=== PATIENT | female | born 1950 | race Caucasian/White ===

== ENCOUNTER 2020-02-16 06:04 | Inpatient (IN) | payer OTHER ==
[2020-02-08 11:45] LABS: HEMATOCRIT 41.6 % (37.0-47.0); HEMOGLOBIN 14.1 gm/dL (12.0-15.0); MCH 32.2 pg (26.0-34.0); MCV 94.9 fL (80.0-100.0); RBC 4.38 mil/uL (4.20-5.00); RDW 13.5 % (10.5-14.5); WBC 4.5 thou/uL (4.0-11.0)
[2020-02-08 11:53] LABS: URINE BLOOD NEGATIVE (Negative); URINE CLARITY CLEAR; URINE COLOR YELLOW; URINE GLUCOSE-RANDOM* NEGATIVE (Negative); URINE KETONES TRACE (Negative); URINE LEUKOCYTES-REFLEX NEGATIVE (Negative); URINE NITRITE-REFLEX NEGATIVE (Negative); URINE PROTEIN (DIPSTICK) NEGATIVE (Negative); URINE SPECIFIC GRAVITY >= 1.030 (1.005-1.035); URINE UROBILINOGEN 0.2 E.U./dl (0.2-1.0)
[2020-02-08 12:01] LABS: CREATININE 0.9 mg/dL (0.6-1.0); POTASSIUM 4.4 mmol/L (3.5-5.1)
[2020-02-08 12:13] LABS: ICTOTEST (BILI CONFIRMATORY) Negative (Negative); URINE BILIRUBIN NEGATIVE (Negative)
--- NOTE | 2020-02-08 15:51 | EKG ---
[facility] [place] [address] ELECTROCARDIOGRAM REPORT Name: JOAN SMITHPaulette Mcneal Room #: PRE IN ..#: [id number] Admission: Attend Phys: Kelvin Kidd MD Discharge: Date of : 46 Report #: [id number] THIS REPORT FOR: cc: Александр Rojas MD, Eric K. MD Couchonnal, Luis F. MD ~ THIS REPORT FOR: //name// [facility] Test Date: 2020-02-08 Test Time: 11:16:04 Pat Name: CHELSEA SMITH Department: Room: Gender: Culinary Intern: Iza WILEY : 1950 Requested By: Kelvin Kidd Order Number: [id number] MD: Fish Jeter Measurements Intervals [place] Rate: 57 P: 41 VT: 189 QRS: 17 QRSD: 89 T: 47 QT: 445 QTc: 434 Interpretive Statements Sinus rhythm Probable anteroseptal infarct, old No previous ECG available for comparison Electronically Signed On 02-08-2020 15:50:55 CDT by Fish Jeter [email or web address] <ELECTRONICALLY SIGNED> By: Fish Jeter MD 02/08/20 1550 [id number] Fish Jeter MD /CECILE
[2020-02-09 02:06] LABS: GLYCOHEMOGLOBIN (HGB A1C) 5.7 % (4.8-5.6)
[~2020-02-16] VITALS: Ht 162.6 cm; Wt 68.0 kg
[2020-02-16] VITALS (7 sets, daily range): BP systolic 101–136; BP diastolic 55–66
[~2020-02-16 06:04] MED LIST: ASPIRIN325 PO; ATIVAN1 M1 PO; CARVEDILOL12.5 MG PO; LEXAPRO 10 MG T10 M1 PO; LIPITOR 20 MG T20 M1 PO; LISINOPRIL20 MG PO; NORVASC5 MG PO
--- NOTE | 2020-02-16 15:22 | NUR ---
met with patient and spouse at bedside. Patient rec DJD bilateral knee. Patient independent with adls police captain senior. Spouse reports they have a walker and wc that has been given to them to use. No hx of HH care. No preference and agreeable to [facility] PCP Dr Rojas. step to enter home once inside all needs on one level.
--- NOTE | 2020-02-16 18:00 | NUR ---
PT RECEIVED FROM [facility] RM ALERT AND IN NO ACUTE DISTRESS. REPORT PER SECRETARY BOARD OF COMMISSIONERS THAT PT HAD DROPPED HER BP TO THE 70'S BUT HAD INCREASED TO THE 90'S SYSTOLIC. BP WAS DOING FINE AND THEN DROPPED AGAIN TO HIGH 70'S SYSTOLIC. PT NOT SYMPTOMATIC BUT GAVE IV FLUID BOLUS AND PUT PT IN TRENDELENBERG AND BP CAME UP IMMEDIATELY. DR. PAREDES SAW PT IN CONSULTAION. DOING WELL. TAKING CLEAR LIQUIDS. DID GET IV MORPHINE FOR PAIN THIS AFTERNOON AND SHE GOT LOCAL RASH W/ ITCHING. REPORTED TO DR. CEE. PT TO WORK W/ PHYSICAL THERAPY TOMORROW.
--- NOTE | 2020-02-16 19:03 | NUR ---
PATIENT ADMITTED FROM OR WITH BILATERAL TOTAL KNEE REPLACEMENT, BILATERAL SHIRLEY DRESSINGS IN PLACE. THIGH HIGH MYESHA HOSE, SCD'S, ICE PACKS. PATIENT HAS 2 HEMOVACS R/L IN PLACE. EMPTIED BY LIEN/BRYSON. PATIENT C/O NAUSEA, ZOFRAN 4MG IV DURING ADMISSION. PATIENT GIVEN MORPHINE 2 MG IV, IMMEDIATELY REDNESS AND ITCHING TO LEFT FOREARM, BENADRYL 25MG PO GIVEN. LIEN/BRYSON NOTIFIED DR CEE. O2 AT 2 LITERS/NC IN PLACE. SATS ABOVE 90%. ADMISSION DONE REPORT GIVEN TO LIEN/BRYSON.
--- NOTE | 2020-02-17 01:53 | NUR ---
ASSUMED PT CARE AT 1900.PT WAS ALERT BUT WITH CONFUSION.PT HAD BEEN CALLING THE NURSES STATION AND WAKING HER FAMILY MEMBERS UP DUE TO HER CONFUSION.HOURLY ROUNDING MAINTAINED.FEMI HEMOVAC IN PLACE ON HER KNEES.DRSG C/D/I.MYESHA HOSE AND SCD IN PLACE.PT STILL AWAKE ON HER BED AT THIS TIME.ICE PACK TO HER FEMI KNEES.CONCRETE BUILDINGS ASSEMBLER NOTIFIED OF PT'S STATUS.PT ENCOURAGED TO USE HER INCENTIVE SPIROMETER.PT REPOSITIONED WHILE IN BED.FALL PRECAUTIONS IN PLACE,CALL LIGHT WITHIN REACH.
[2020-02-17 04:30] VITALS: BP 145/70
[2020-02-17 05:01] LABS: HEMATOCRIT 26.5 % (37.0-47.0); HEMOGLOBIN 9.2 gm/dL (12.0-15.0); MCH 33.1 pg (26.0-34.0); MCHC 34.7 g/dL (28.0-37.0); MCV 95.4 fL (80.0-100.0); RBC 2.78 mil/uL (4.20-5.00); RDW 12.9 % (10.5-14.5); WBC 9.6 thou/uL (4.0-11.0)
[2020-02-17 05:03] LABS: CALCIUM 7.8 mg/dL (8.5-10.1); CREATININE 0.7 mg/dL (0.6-1.0); MAGNESIUM 1.5 mg/dL (1.8-2.4); POTASSIUM 4.3 mmol/L (3.5-5.1)
[2020-02-17 07:35] VITALS: BP 120/56
[2020-02-17 11:21] VITALS: BP 150/81
--- NOTE | 2020-02-17 11:32 | O ---
[facility] [place] [address] OPERATIVE REPORT Name: CHELSEA SMITH Room #: 446-P ADM IN M.R.#: [id number] Admission: 02/16/20 Attend Phys: Kelvin Kidd MD Discharge: Date of : 46 Report #: [id number] THIS REPORT FOR: cc: Александр Rojas MD, Eric K. MD Clymer, David J. MD ~ CC: Kelvin Rojas DATE OF SERVICE: 02/16/2020 PREOPERATIVE DIAGNOSIS: Bilateral knee degenerative osteoarthritis. POSTOPERATIVE DIAGNOSIS: Bilateral knee degenerative osteoarthritis. PROCEDURE: Bilateral total knee replacement. SURGEON: Kelvin Kidd MD INDICATIONS: This slender, active and independent 69-year-old female complains of rather severe bilateral knee pain. Clinical exam and x-rays reveal moderately severe degenerative arthritis with moderate 3 compartment crepitus and mild swelling. Alignment is satisfactory. We have discussed various treatment options including conservative management with injections and anti-inflammatories or therapy. She finds these are ineffective and has elected to go ahead with total knee replacement. I suggested it would probably be the best and safest to do 1 knee at a time, but she was rather adamant that she prefers bilateral knee replacement and is confident that she can manage the postoperative recovery, even though she understands it may be more difficult. The patient and her understand well and appreciate some increased risk with bilateral procedure, but prefer to go ahead with that approach. DESCRIPTION OF PROCEDURE: The patient was taken to the operating room where she was placed under general anesthesia. Prophylactic intravenous antibiotics were administered. Both lower extremities were meticulously prepped and draped. The attention was directed to the left knee first and the right knee was covered. The left lower extremity was exsanguinated and a thigh tourniquet applied and inflated to 300 mmHg. An anterior longitudinal skin incision was made and carried through the medial retinaculum. The patella was reflected laterally. Moderate degenerative change in all 3 compartments was noted. The Masterson and NephKlip.in knee system was utilized. Intramedullary guides were used on both the femur and the tibia. The femur was cut in 5 degrees of valgus and the tibia cut perpendicular to long axis of the bone. The femur was best suited for a size 3 left femoral component. The tibia was best suited for a size 2 tibial component. The patellar surface was resected and a 29 mm patellar button seemed to fit most appropriately. A trial reduction was performed and the knee seemed [address] [address] OPERATIVE REPORT Name: JNJOAN RAMOSPaulette Mcneal Room #: 446-P [facility] IN [facility]#: [id number] Admission: 02/16/20 Attend Phys: Kelvin Kidd MD Discharge: Date of : 46 Report #: [id number] best suited for a 9 mm polyethylene insert. This resulted in full knee extension and good flexion and satisfactory stability. The patella seemed to track nicely and appears to be stable. The trial components were removed. The bony surfaces were thoroughly irrigated and dried. The intramedullary canal was blocked with a bone block on both the femoral and tibial sides. Methyl methacrylate cement was mixed and injected into the porous surface of the tibia. The permanent components were brought on to the field. A Masterson and Nephew cruciate retaining size 2 tibial baseplate was impacted into position and the excess cement removed from around its margin. A 9 mm cruciate retaining polyethylene insert was snapped into place. It seated nicely and appeared to be secure. A size 3 left femoral component was impacted onto the distal femur and seated nicely and appeared to be secure. A 29 mm patellar button was cemented into place using appropriate anchor holes and this was secured with a patellar clamp while the cement hardened. Once the cement was firm, alignment, range of motion and stability were assessed and felt to be satisfactory. A single Hemovac was left in the wound exiting through a lateral separate stab incision. The fascia was closed with multiple #1 Vicryl sutures. The subcutaneous tissues were closed with 0 Monocryl. The skin was closed with skin jerica. A sterile dressing was applied. The tourniquet was deflated after a total tourniquet time of 50 minutes. Attention was then directed to the opposite right knee. Once again, the knee had been previously prepped and draped in a sterile fashion. The extremity was exsanguinated and a thigh tourniquet applied and inflated to 300 mmHg. An anterior longitudinal skin incision was made and carried through the medial retinaculum. The patella was reflected laterally and somewhat more severe generalized degenerative chondromalacia damage in all 3 compartments was noted. Once again, the Masterson and Nephew knee system was utilized. Intramedullary guides were used on both the femur and the tibia. The femur was cut in 5 degrees of valgus and the tibia cut perpendicular to long axis of the bone. The femur was best suited for a size 3 right femoral component and the tibia best suited for a size 2 tibial component. The patellar surface was resected and a 29 mm patellar button seemed to fit most appropriately. A trial reduction was performed and a 10 mm polyethylene insert fit nicely and resulted in full knee extension, good flexion and satisfactory stability with varus and valgus stress. The trial components were removed. The bony surfaces were thoroughly irrigated and dried. The intramedullary canal was blocked with bone block on both the femoral and tibial sides. Methyl methacrylate cement was mixed and injected into the porous surface of the proximal tibia. The permanent components were brought on to the field. A Masterson and Nephew size 2 right tibial baseplate was impacted into position. It seated nicely and appeared to be secure. A 10 mm polyethylene insert was snapped into place and also seemed to be secure. The size 3 right cruciate retaining femoral component was then impacted on to the distal femur. It seated nicely and appeared to be secure. A 29 mm patellar [address] [address] OPERATIVE REPORT Name: CHELSEA SMITH Room #: 446-P [facility] IN [facility]#: [id number] Admission: 02/16/20 Attend Phys: Kelvin Kidd MD Discharge: Date of : 46 Report #: [id number] button was cemented in place with appropriate anchor holes and held with a patellar clamp until the cement had hardened. Once the cement was firm, alignment, range of motion and stability were assessed and felt to be satisfactory. A single Hemovac was left in the wound exiting through a separate stab incision. The tourniquet was deflated after a total tourniquet time of 46 minutes. Good hemostasis was confirmed. The fascia was closed with multiple #1 Vicryl sutures. The subcutaneous tissues were closed with 0 Monocryl. The skin was closed with skin jerica. Sterile dressing was applied to both knees. The patient was then awakened and returned to recovery room in satisfactory condition. <ELECTRONICALLY SIGNED> By: Kelvin Kidd MD 02/17/20 1132 1040 1138 Kelvin Kidd MD /nt
--- NOTE | 2020-02-17 11:52 | NUR ---
SW reviewed chart and spoke with nursing. Pt is POD#1 bilateral TKR. Pt is progressing towards goals for discharge. Anticipate pt will be able to discharge home. Should pt need home health services, referral has been sent to [facility]. Finalized discharge orders/summary will need to be faxed to if needed. SW is available to assist as needed with discharge planning. [facility]AY[facility] --
[2020-02-17 16:20] VITALS: BP 153/69
--- NOTE | 2020-02-17 16:58 | NUR ---
PATIENT SEEN THIS DATE FOR REHAB CONSULT BY DIXIE DOTY NP WITH DR. POTTER. PATIENT WITH CONFUSION AND PAIN THIS DATE. IS HOPING THAT PATIENT CAN DISCHARGE TO HOME. DIXIE WILL REVIEW PATIENT'S MEDICAL CHART TOMORROW TO GET UPDATE ON PATIENT'S CONDITION. IF PATIENT UNABLE TO RETURN TO HOME WILL CONTACT DR. CEE AND LET PHYSICAIN KNOW THAT ACUTE REHAB WOULD BE AN OPTION FOR PATIENT IF DESIRED. THANK YOU FOR THIS REFERRAL.
--- NOTE | 2020-02-17 17:34 | NUR ---
Assumed care of pt at 0700. Pt very confused in the am. Moved closer to nurse's station. Dressings c/d/i. IVF discontinued. Pain uncontrolled with prn pain meds. Provider aware. New orders noted. Pt feeling nauseous. 2 episodes of emesis. Anti-emetic administered. Hemovac drains removed per order. MYESHA hose and SCDs in place. Ice packs in place. Family at bedside. Fall precautions in place. Will continue to monitor.
[2020-02-17 20:36] VITALS: BP 145/64
[2020-02-18 04:40] VITALS: BP 137/73
--- NOTE | 2020-02-18 04:41 | NUR ---
ASSESSMENT COMPLETED. SPOUSE IN ROOM AT THE START OF SHIFT. PT STILL REMOTELY CONFUSED. SMILING BUT TOLD ME SHE IS IN [place] WHEN I ASKED HER.SHE IS STILL IMPULSIVE, IS NOT USING CALL LIGHT YET. SHE HAD ONE EPISODE OF NAUSEA WITH EMESIS RIGHT AFTER SHE GOT HER HS MEDICATIONS. PT STILL HAS TEDS AND SCDS IN PLACE. WE HAVE BEEN USING ICE PAKS TOO.THE TOES HAVE GOOD CIRCULATION, SENSATION AND MOVEMENT.AFEBRILE.SATTING OKAY ON ROOM AIR. FALL PREC IN PLACE. WILL CONTINUE WITH POC TILL EOS.
[2020-02-18 05:34] LABS: HEMATOCRIT 24.8 % (37.0-47.0); HEMOGLOBIN 8.8 gm/dL (12.0-15.0); MCH 33.1 pg (26.0-34.0); MCHC 35.2 g/dL (28.0-37.0); RBC 2.64 mil/uL (4.20-5.00); RDW 12.5 % (10.5-14.5); WBC 9.6 thou/uL (4.0-11.0)
[2020-02-18 08:40] VITALS: BP 138/75
[2020-02-18 14:03] LABS: TSH 0.68 uIU/mL (0.358-3.740)
[2020-02-18 14:08] LABS: HEMATOCRIT 23.5 % (37.0-47.0); HEMOGLOBIN 8.1 gm/dL (12.0-15.0)
[2020-02-18 17:00] VITALS: BP 141/59
[2020-02-18 20:09] VITALS: BP 141/65
--- NOTE | 2020-02-18 21:20 | NUR ---
PT ALERT XS 4 UP IN BEDSIDE CHAIR WATCHING TV. AT BEDSIDE. PT HAS GOOD APPETITE. DR JENSEN HERE AND ORDERED LABS. PT WORKING WITH PT/OT HAS IV ACSESS.
[2020-02-19 00:03] VITALS: BP 139/70
--- NOTE | 2020-02-19 02:42 | NUR ---
RECIEVED CARE OF THIS PAITENT AT 1900. PATIENT ALERT AND ORIENTED X4. DRESSING ON FEMI KNEES D/I. HAS TEDS AND SCD'S ON FEMI LOWER EXT. ICE BAGS APPLIED ALSO. USES BEDPAN. DENIES PAIN. TURNS WELL BY SELF IN BED. TAKES MEDS WITH APPLESAUCE. SLEPT OFF AND ON DURING THIS SHIFT.
[2020-02-19 04:05] VITALS: BP 137/57
[2020-02-19 06:10] LABS: BASOPHILS 0.2 % (0.0-2.0); EOSINOPHILS 0.3 % (0.0-3.0); HEMATOCRIT 22.4 % (37.0-47.0); HEMOGLOBIN 7.6 gm/dL (12.0-15.0); LYMPHOCYTES 27.9 % (24.0-44.0); MCH 32.5 pg (26.0-34.0); MCV 95.4 fL (80.0-100.0); MONOCYTES 10.5 % (1.0-8.0); PLATELET COUNT 207 thou/uL (150-400); POLYS 61.1 % (36.0-66.0); RBC 2.34 mil/uL (4.20-5.00); RDW 13.1 % (10.5-14.5); WBC 8.2 thou/uL (4.0-11.0)
[2020-02-19 06:42] LABS: CREATININE 0.7 mg/dL (0.6-1.0); MAGNESIUM 2.2 mg/dL (1.8-2.4); PHOSPHORUS 1.7 mg/dL (2.5-4.9); POTASSIUM 3.2 mmol/L (3.5-5.1)
[2020-02-19 08:00] VITALS: BP 143/47
[2020-02-19 16:35] VITALS: BP 137/63
--- NOTE | 2020-02-19 16:43 | NUR ---
Assumed care of pt at 0700. Pt confused in the am. Does not know where she is. at bedside. Pt improving throughout the day. Unable to work with physical therapy due to nausea. Dressings intact. Ice packs in place. MYESHA hose and SCDs in place. Prn pain meds administered. Fall precautions in place. Will continue to monitor.
[2020-02-19 17:39] LABS: HEMATOCRIT 23.1 % (37.0-47.0); HEMOGLOBIN 8.1 gm/dL (12.0-15.0)
[2020-02-19 20:57] VITALS: BP 141/63
[2020-02-20 00:17] LABS: URINE BILIRUBIN NEGATIVE (Negative); URINE BLOOD NEGATIVE (Negative); URINE CLARITY CLEAR; URINE COLOR YELLOW; URINE GLUCOSE-RANDOM* NEGATIVE (Negative); URINE KETONES NEGATIVE (Negative); URINE LEUKOCYTES-REFLEX NEGATIVE (Negative); URINE NITRITE-REFLEX NEGATIVE (Negative); URINE PROTEIN (DIPSTICK) NEGATIVE (Negative); URINE SPECIFIC GRAVITY <= 1.005 (1.005-1.035); URINE UROBILINOGEN 0.2 E.U./dl (0.2-1.0)
--- NOTE | 2020-02-20 03:25 | NUR ---
ASSESSED AT START OF SHIFT 1900. PT A&O3 FORGETFULL BUT EASILY REORIENTED. EVENING MEDS GIVEN AND PT NEPTALI IT WELL. FEMI KNEE DRESSING INTACT WITH ICE BAG, TEDHOSE AND SCD'S. UA COLLECTED AND SENT TO LAB. PAIN MED GIVEN. PT SLEPT THROUGH THE NIGHT WILL CONT TO MONITOR.
[2020-02-20 05:19] VITALS: BP 152/51
[2020-02-20 06:37] LABS: ABSOLUTE NEUTROPHILS 3.3 thou/uL (1.4-8.2); BASOPHILS 0.4 % (0.0-2.0); EOSINOPHILS 0.8 % (0.0-3.0); HEMATOCRIT 21.9 % (37.0-47.0); HEMOGLOBIN 7.5 gm/dL (12.0-15.0); LYMPHOCYTES 39.6 % (24.0-44.0); MCH 32.8 pg (26.0-34.0); MCHC 34.3 g/dL (28.0-37.0); MCV 95.6 fL (80.0-100.0); MONOCYTES 11.2 % (1.0-8.0); PLATELET COUNT 240 thou/uL (150-400); RBC 2.29 mil/uL (4.20-5.00); WBC 6.9 thou/uL (4.0-11.0)
[2020-02-20 06:50] LABS: CALCIUM 7.9 mg/dL (8.5-10.1); CREATININE 0.5 mg/dL (0.6-1.0); MAGNESIUM 2.1 mg/dL (1.8-2.4); PHOSPHORUS 2.2 mg/dL (2.5-4.9)
[2020-02-20 08:27] VITALS: BP 143/57
--- NOTE | 2020-02-20 08:41 | NUR ---
ON-GOING ASSESSMENT: CM REVIEWED CHART. PT ASKED TO SPEAK TO CM. PT IS REQUESTING TO GO TO [facility] PRIOR TO DISCHARGING HOME. CM FAXED REFERRAL TO [facility] ALONG WITH NEGATIVE COVID TEST. CM AWAITING FURTHER INPUT FROM [facility] AT THIS TIME.
[2020-02-20] MEDS ORDERED: XARELTO10 MG PO (08:58)
[2020-02-20] MEDS ORDERED: PROTONIX40 M1 PO (13:42)
[2020-02-20] MEDS ORDERED: SENNA8.6 MG PO (13:42)
[2020-02-20] MEDS ORDERED: VITAMIN B-121000 MC2 SUBLING (13:42)
[2020-02-20] MEDS ORDERED: NORCO 7.5-3251 EACH PO (13:42)
[2020-02-20] MEDS ORDERED: COLACE100 MG PO (13:42)
[2020-02-20] MEDS ORDERED: FOLIC ACID1 MG PO (13:42)
--- NOTE | 2020-02-20 18:16 | NUR ---
Assumed care of pt at 0700. Pt confused in the am. Better as the shift progressed. Family at bedside. SHIRLEY dressings changed. Pt discharging to [facility] rehab. Report given to rehab nurse.
== END 2020-02-20 17:24 | DRG 462 ==
LOC: 4S 06:04 → TBA 06:04 → PRE 06:04 → 4S 12:22 → PRE 13:00 → 4S 02-17 07:29
PROVIDERS: Internal Medicine; Nurse Practitioner Family; ADMIT Orthopaedic Surgery; ATTEND Orthopaedic Surgery
DX: M17.0 Bilateral primary osteoarthritis of knee (principal); D62 Acute posthemorrhagic anemia; F05 Delirium due to known physiological condition; E87.6 Hypokalemia; I95.9 Hypotension, unspecified; E86.9 Volume depletion, unspecified; R00.0 Tachycardia, unspecified; E86.1 Hypovolemia; I10 Essential (primary) hypertension; E78.5 Hyperlipidemia, unspecified; F32.9 Major depressive disorder, single episode, unspecified; E53.8 Deficiency of other specified B group vitamins; F41.9 Anxiety disorder, unspecified; Z20.828 Contact with and (suspected) exposure to other viral communicable diseases; E83.39 Other disorders of phosphorus metabolism; Z79.82 Long term (current) use of aspirin; Z79.899 Other long term (current) drug therapy
CPT/HCPCS: 10102; 50010; 50101; 50415; 50954; 51130; 51225; 51412; 53364; 56525; 57095; 57103; 57180; 62110; 62900; 64043; 65060; 70005